=== PATIENT | female | born 1970 | race Two or more races ===

== ENCOUNTER 2022-02-19 10:58 | Emergency (ER) | payer BC ==
[2022-02-19 12:54] LABS: CORONAVIRUS COVID-19 NAA NEGATIVE (NEGATIVE)
== END 2022-02-19 13:55 | disposition home or self-care (01) ==
LOC: JP.ED 10:58 → MERGE 10:58 → JP.ED 13:55
DX: E05.90 Thyrotoxicosis, unspecified without thyrotoxic crisis or storm (principal); E11.9 Type 2 diabetes mellitus without complications; E03.9 Hypothyroidism, unspecified; Z20.822 Contact with and (suspected) exposure to COVID-19
CPT/HCPCS: 0241U; 36415; 74176; 74176-26; 80048; 84443; 85027; 99283; 99284-25

== ENCOUNTER 2022-10-22 22:43 | Emergency (ER) | payer BC ==
[2022-10-22] MEDS ORDERED: Proparacaine 0.5% Ophth Soln 15 ML Bottle EYELF ONE (23:42)
[2022-10-22] MEDS ORDERED: Ketorolac 30 MG/ML SDV IM ONE (23:52)
[2022-10-23] MEDS ORDERED: Acyclovir 200 MG Cap PO ONE (01:17)
== END 2022-10-23 01:49 | disposition home or self-care (01) ==
LOC: JP.ED 22:43
DX: R51.9 Headache, unspecified (principal); H11.32 Conjunctival hemorrhage, left eye; B02.30 Zoster ocular disease, unspecified; I10 Essential (primary) hypertension; E11.9 Type 2 diabetes mellitus without complications; Z79.899 Other long term (current) drug therapy; Z90.49 Acquired absence of other specified parts of digestive tract; Z86.16 Personal history of COVID-19
CPT/HCPCS: 36415; 70450; 80048; 85025; 86140; 96372; 99284; A9270; J1885

== ENCOUNTER 2023-07-19 14:27 | Emergency (ER) | payer BC ==
[2023-07-19] MEDS ORDERED: Sodium Chloride 0.9% 10 ML Syringe FLUSH PRN (15:07)
[2023-07-19 15:21] LABS: BASOPHILS ABSOLUTE AUTO 0.03 K/uL (0.00-0.10); BASOPHILS PERCENT AUTO 0.4 % (0.1-1.3); EOSINOPHILS ABSOLUTE AUTO 0.12 K/uL (0.00-0.40); EOSINOPHILS PERCENT AUTO 1.7 % (0.0-5.4); HEMATOCRIT 41.8 % (34.3-46.0); HEMOGLOBIN 14.3 g/dL (11.2-15.5); IMMATURE GRAN PERCENT AUTO 0.1 % (0.0-0.7); LYMPHOCYTES ABSOLUTE AUTO 2.29 K/uL (0.8-3.3); LYMPHOCYTES PERCENT AUTO 31.5 % (11.4-47.7); MEAN CORPUSCULAR HEMOGLOBIN 30.7 pg (31.6-35.5); MEAN CORPUSCULAR HGB CONC 34.2 g/dL (31.6-35.5); MEAN CORPUSCULAR VOLUME 89.7 fL (81.4-99.0); MONOCYTES ABSOLUTE AUTO 0.58 K/uL (0.20-0.90); NEUTROPHILS ABSOLUTE AUTO 4.23 K/uL (1.0-7.6); NEUTROPHILS PERCENT AUTO 58.3 % (40.0-78.1); PLATELET COUNT,PLT 214 K/uL (130-375); RED BLOOD CELL COUNT 4.66 M/uL (3.77-5.24); WHITE BLOOD CELL COUNT,WBC 7.3 K/uL (3.2-11.0)
[2023-07-19 15:31] LABS: IMMATURE GRAN ABSOLUTE AUTO 0.01 K/uL (0.00-0.23)
[2023-07-19 15:44] LABS: A/G RATIO 0.9 (1.2-2.2); ALANINE AMINOTRANSFERASE,ALT 32 U/L (12-78); ALBUMIN 3.4 g/dL (3.4-5.0); ALKALINE PHOSPHATASE 147 U/L (46-116); ANION GAP 11.5 mmol/L (5.0-14.0); ASPARTATE AMNIOTRANSFERASE,AST 19 U/L (15-37); BILIRUBIN TOTAL 0.3 mg/dL (0.2-1.0); BLOOD UREA NITROGEN,BUN 18 mg/dL (7-18); CALCIUM 8.7 mg/dL (8.5-10.1); CARBON DIOXIDE,CO2 28 mmol/L (21-32); CHLORIDE,CL 106 mmol/L (100-108); CREATININE 0.6 mg/dL (0.6-1.0); EST CRCL DRUG DOSING (CG) 77.89 mL/min; ESTIMATED GFR 107 mL/min (>60); GLUCOSE RANDOM 119 mg/dL (74-106); MAGNESIUM 1.8 mg/dL (1.8-2.4); POTASSIUM,K 3.5 mmol/L (3.6-5.2); PROTEIN TOTAL,TP 7.3 g/dL (6.4-8.2); SODIUM,NA 142 mmol/L (140-148)
== END 2023-07-19 16:50 | disposition home or self-care (01) ==
LOC: JP.ED 14:27
DX: S16.1XXA Strain of muscle, fascia and tendon at neck level, initial encounter (principal); M54.6 Pain in thoracic spine; R07.9 Chest pain, unspecified; I10 Essential (primary) hypertension; E11.9 Type 2 diabetes mellitus without complications; Z86.16 Personal history of COVID-19; Z79.85 Long-term (current) use of injectable non-insulin antidiabetic drugs; X58.XXXA Exposure to other specified factors, initial encounter; Z79.899 Other long term (current) drug therapy
CPT/HCPCS: 36415; 80053; 83735; 84484; 85025; 85379; 93005; 93010; 99283; 99285

== ENCOUNTER 2023-12-14 14:31 | Emergency (ER) | payer BC ==
[2023-12-14] MEDS: EPINEPHrine 1 MG/ML SDV IM ONE (15:16)
[2023-12-14] MEDS: diphenhydrAMINE 50 MG/ML SDV IVPUSH ONE (15:17)
[2023-12-14] MEDS: methylPREDNISolone Sodium Succinate 125 MG/2 ML SDV IV ONE (15:17)
[2023-12-14] MEDS: Sodium Chloride 0.9% 10 ML Syringe FLUSH PRN (15:17)
== END 2023-12-14 17:43 | disposition home or self-care (01) ==
LOC: JP.ED 14:31
DX: T78.40XA Allergy, unspecified, initial encounter (principal); I10 Essential (primary) hypertension; E11.9 Type 2 diabetes mellitus without complications; Z86.16 Personal history of COVID-19; Z90.49 Acquired absence of other specified parts of digestive tract; Z79.899 Other long term (current) drug therapy; Z91.041 Radiographic dye allergy status
CPT/HCPCS: 96372; 96374; 96375; 99283; 99283-25; J0171; J1200; J2930; J3490

== ENCOUNTER 2024-05-07 21:56 | Emergency (ER) | payer BC | END 2024-05-07 22:35 | disposition home or self-care (01) | LOC: JP.ED 21:56 | DX: J32.0 Chronic maxillary sinusitis (principal); I10 Essential (primary) hypertension; E11.9 Type 2 diabetes mellitus without complications; Z86.16 Personal history of COVID-19; Z90.49 Acquired absence of other specified parts of digestive tract; Z79.899 Other long term (current) drug therapy; Z91.041 Radiographic dye allergy status | CPT/HCPCS: 99283 ==